=== PATIENT | male | born 1980 | race Caucasian/White ===

== ENCOUNTER 2017-07-04 12:48 | Emergency (ER) | payer SELFPAY ==
[2017-07-04 12:53] VITALS: BP 119/70; BMI 20.7
[2017-07-04] MEDS ORDERED: TORADOL 60 MG VIAL IM ONE (14:10)
[2017-07-04] MEDS ORDERED: TORADOL 60 MG VIAL ONE (14:11)
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
== END 2017-07-04 14:54 | disposition home or self-care (01) ==
LOC: ER 13:15
DX: S62.657A Nondisplaced fracture of middle phalanx of left little finger, initial encounter for closed fracture (principal); Y33.XXXA Other specified events, undetermined intent, initial encounter; Y92.9 Unspecified place or not applicable
CPT/HCPCS: 73130; 96372; 99282; J1885

== ENCOUNTER 2017-07-26 22:36 | Emergency (ER) | payer SELFPAY ==
[2017-07-26 22:44] VITALS: BP 124/77; BMI 20.7
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
--- NOTE | 2017-07-26 23:26 | RAD ---
Three views of the right hand. Indication: Right hand pain and thumb pain after trauma Findings: No acute fracture or dislocation within the right hand. No localizing soft tissue swelling tiny radiodensity adjacent to the thumb proximal phalanx potentially represents a tiny ossicle or rad iopaque foreign body for which clinical correlation is needed. Wrist joint alignment is normal. No de generative change or joint space loss within the right wrist. Impression: See above. Reported By:
[2017-07-26] MEDS ORDERED: TORADOL TAB PO ONE ×2 (23:45→23:48)
== END 2017-07-26 23:53 | disposition home or self-care (01) ==
LOC: ER 22:51
PROC: 2W38X1Z Immobilization of Right Upper Extremity using Splint (ICD-10-PCS; principal; 2017-07-26)
DX: S63.681A Other sprain of right thumb, initial encounter (principal); W19.XXXA Unspecified fall, initial encounter
CPT/HCPCS: 29130; 73130; 99282; 99283